=== PATIENT | female | born 1995 | race Caucasian/White ===

== ENCOUNTER 2019-03-08 12:18 | Emergency (ER) | payer MEDICAID ==
[~2019-03-08] VITALS: Ht 165.1 cm; Wt 54.4 kg
[2019-03-08 13:02] VITALS: BP_SYST 128
[2019-03-08] MEDS ORDERED: IBUPROFEN 600 MG TABLET PO ONE (13:45)
[2019-03-08 14:05] VITALS: BP_SYST 128
== END 2019-03-08 14:05 | disposition home or self-care (01) ==
LOC: SED 12:18
DX: S93.402A Sprain of unspecified ligament of left ankle, initial encounter (principal); R03.0 Elevated blood-pressure reading, without diagnosis of hypertension; X50.9XXA Other and unspecified overexertion or strenuous movements or postures, initial encounter; Y93.89 Activity, other specified; Y92.89 Other specified places as the place of occurrence of the external cause; Y99.8 Other external cause status
CPT/HCPCS: 81025; 99283

== ENCOUNTER 2021-03-31 07:05 | Inpatient (IN) | payer MEDICAID, SELFPAY ==
[~2021-03-31] VITALS: Ht 165.1 cm; Wt 69.4 kg
[2021-03-31] MEDS ORDERED: NALBUPHINE HCL 10 MG/ML AMP IVP PRN (08:00)
[2021-03-31] MEDS ORDERED: TERBUTALINE SULFATE 1 MG/ML VIAL SUBCUT ONE (08:00)
[2021-03-31] MEDS ORDERED: OXYTOCIN/0.9 % SODIUM CHLORIDE 1,000 ML IV SCH (08:00)
[2021-03-31] MEDS ORDERED: LR 1,000 ML IV SCH (08:00)
[2021-03-31 08:29] LABS: BASOPHILS % (AUTO) 0.5 % (0.0-2.0); EOSINOPHILS # (AUTO) 0.1 K/uL (0.0-0.4); EOSINOPHILS % (AUTO) 0.6 % (0.0-4.0); HEMATOCRIT 36.1 % (36-48); HEMOGLOBIN 12.3 g/dL (12.0-16.0); LYMPHOCYTES # (AUTO) 1.9 K/uL (1.0-5.5); LYMPHOCYTES % (AUTO) 22.4 % (20.5-51.5); MEAN CORPUSCULAR HEMOGLOBIN 31 pg (27-31); MEAN CORPUSCULAR HGB CONC 34 % (32-36); MEAN CORPUSCULAR VOLUME 90 fL (79.0-98.0); MONOCYTES # (AUTO) 0.5 K/uL (0.0-1.0); MONOCYTES % (AUTO) 6.1 % (1.7-9.3); NEUTROPHILS # (AUTO) 5.8 K/uL (1.8-7.7); NEUTROPHILS % (AUTO) 70.4 % (40.0-70.0); PLATELET COUNT (AUTO) 201 K/uL (130-430); RED BLOOD CELL COUNT(AUTO) 4.01 MIL/uL (4.2-6.2); RED CELL DISTRIBUTION WIDTH 13.5 % (9.0-15.0); WHITE BLOOD COUNT (AUTO) 8.3 K/uL (4.8-10.8)
[2021-03-31] MEDS ORDERED: fentaNYL CITRATE/PF 100 MCG/2 ML AMP ONE (08:52)
[2021-03-31] MEDS ORDERED: ROPIVACAINE HCL/PF 0.2% 200 ML ONE (08:52)
[2021-03-31 10:23] VITALS: BP_SYST 118
[2021-03-31] MEDS ORDERED: METHYLERGONOVINE MALEATE 0.2 MG TABLET PO PRN (11:00)
[2021-03-31] MEDS ORDERED: ANUSOL 1 EA SUPP.RECT (PREPARATION H) RC PRN (11:00)
[2021-03-31] MEDS ORDERED: OXYCODONE/ACETAMINOPHEN 5-325 TABLET PO PRN (11:00)
[2021-03-31] MEDS ORDERED: HYDROCORTISONE 0.5% CREAM 28.4 GM CREAM.GM. TP PRN (11:00)
[2021-03-31] MEDS ORDERED: WITCH HAZEL LEAF 1 MED.PAD MED.PAD TP PRN (11:00)
[2021-03-31] MEDS ORDERED: OXYTOCIN/0.9 % SODIUM CHLORIDE 1,000 ML IV ONE (11:00)
[2021-03-31] MEDS ORDERED: DERMOPLAST SPRAY TP PRN (11:00)
[2021-03-31] MEDS ORDERED: LANOLIN 7 GM OINT. TP PRN (11:00)
[2021-03-31] MEDS: IBUPROFEN 800 MG TABLET PO PRN (11:59)
[2021-03-31] MEDS: OXYCODONE/ACETAMINOPHEN 5-325 TABLET PO PRN ×2 (17:26→21:15)
[2021-03-31] MEDS ORDERED: TEMAZEPAM 15 MG CAPSULE PO PRN (21:00)
[2021-03-31] MEDS ORDERED: SENNOSIDES/DOCUSATE SODIUM 1 TAB TABLET(SENOKOT-S) PO SCH (21:00)
[2021-04-01] MEDS: IBUPROFEN 800 MG TABLET PO PRN ×3 (00:02→12:59)
[2021-04-01] MEDS ORDERED: DIPH-TET-PERTUS Vaccine 0.5 ML VIAL (ADACEL) I.M. ONE (07:45)
[2021-04-01 08:20] LABS: HEMOGLOBIN 11.4 g/dL (12.0-16.0)
[2021-04-01] MEDS ORDERED: DOCUSATE SODIUM 100 MG CAPSULE PO SCH (09:00)
[2021-04-02 20:06] LABS: FTA-Ab (T PALLIDUM) Non Reactive (Non Reactive)
== END 2021-04-01 13:50 | disposition home or self-care (01) | DRG 560 ==
LOC: SPU 07:05 → OBSVTOIN 07:05
PROVIDERS: ADMIT Obstetrics & Gynecology; ATTEND Obstetrics & Gynecology
PROC: 10E0XZZ Delivery of Products of Conception, External Approach (ICD-10-PCS; principal; 2021-03-31)
PROC: 0HQ9XZZ Repair Perineum Skin, External Approach (ICD-10-PCS; 2021-03-31)
PROC: 3E0R3BZ Introduction of Anesthetic Agent into Spinal Canal, Percutaneous Approach (ICD-10-PCS; 2021-03-31)
PROC: 00HU33Z Insertion of Infusion Device into Spinal Canal, Percutaneous Approach (ICD-10-PCS; 2021-03-31)
DX: O70.0 First degree perineal laceration during delivery (principal); Z37.0 Single live birth; R71.0 Precipitous drop in hematocrit; Z20.822 Contact with and (suspected) exposure to COVID-19; Z3A.39 39 weeks gestation of pregnancy
CPT/HCPCS: 36415; 81002; 85018; 85025; 86592; 86780; 86886; 86900; 86901; 90715; 94760; J2590; J3010

== ENCOUNTER 2022-08-23 13:35 | Emergency (ER) | payer MEDICAID ==
[~2022-08-23] VITALS: Ht 165.1 cm; Wt 72.6 kg
[2022-08-23 14:29] VITALS: BP_SYST 119
[2022-08-23 15:43] LABS: BILIRUBIN,URINE NEGATIVE (NEGATIVE); BLOOD, URINE NEGATIVE (NEGATIVE); CLARITY/URINE CLEAR (CLEAR); COLOR,URINE YELLOW (YELLOW); GLUCOSE,URINE NEGATIVE (NEGATIVE); KETONES,URINE TRACE (NEGATIVE); LEUKOCYTE ESTERASE ,URINE NEGATIVE (NEGATIVE); NITRITE, URINE NEGATIVE (NEGATIVE); PROTEIN URINE NEGATIVE (NEGATIVE)
[2022-08-23 16:00] LABS: BASOPHILS % (AUTO) 0.5 % (0.0-2.0); EOSINOPHILS # (AUTO) 0.1 K/uL (0.0-0.4); HEMATOCRIT 41.3 % (36-48); HEMOGLOBIN 13.6 g/dL (12.0-16.0); LYMPHOCYTES # (AUTO) 1.5 K/uL (1.0-5.5); LYMPHOCYTES % (AUTO) 27.6 % (20.5-51.5); MEAN CORPUSCULAR HEMOGLOBIN 28 pg (27-31); MEAN CORPUSCULAR HGB CONC 33 % (32-36); MEAN CORPUSCULAR VOLUME 85 fL (79.0-98.0); MONOCYTES # (AUTO) 0.5 K/uL (0.0-1.0); MONOCYTES % (AUTO) 9.4 % (1.7-9.3); NEUTROPHILS # (AUTO) 3.4 K/uL (1.8-7.7); NEUTROPHILS % (AUTO) 61.5 % (40.0-70.0); PLATELET COUNT (AUTO) 222 K/uL (130-430); RED BLOOD CELL COUNT(AUTO) 4.83 MIL/uL (4.2-6.2); RED CELL DISTRIBUTION WIDTH 13.8 % (9.0-15.0); WHITE BLOOD COUNT (AUTO) 5.6 K/uL (4.8-10.8)
[2022-08-23 16:11] LABS: CALCIUM 8.5 mg/dL (8.4-11.0); CREATININE 0.56 mg/dL (0.55-1.30)
[2022-08-23 16:16] LABS: ALBUMIN 3.9 g/dL (3.4-4.8); TOTAL BILIRUBIN 0.4 mg/dL (0.0-1.0)
[2022-08-23] MEDS ORDERED: OMEP20CA15 PO (17:12)
[2022-08-23] MEDS ORDERED: ONDA-8 TL (17:12)
== END 2022-08-23 17:29 | disposition home or self-care (01) ==
LOC: SED 13:35
DX: R10.13 Epigastric pain (principal); R11.10 Vomiting, unspecified; Z79.899 Other long term (current) drug therapy
CPT/HCPCS: 36415; 76705; 80053; 81003; 82150; 83605; 83690; 84703; 85025; 99284

== ENCOUNTER 2023-07-13 08:00 | Emergency (ER) | payer MEDICAID ==
[~2023-07-13] VITALS: Ht 165.1 cm; Wt 70.3 kg
[~2023-07-13 08:00] MED LIST: IBUP-1971 PO; OMEP20CA15 PO; ONDA-8 TL
[2023-07-13 08:07] VITALS: BP_SYST 120; PULSE 104; RESP 18; TEMP 98.4; O2SAT 99
[2023-07-13] MEDS ORDERED: ONDANSETRON 4 MG ODT TAB PO ONE (08:30)
[2023-07-13] MEDS ORDERED: KETOROLAC TROMETHAMINE 30 MG VIAL IM ONE (08:30)
[2023-07-13] MEDS ORDERED: IBUP-1969 PO (08:47)
[2023-07-13] MEDS ORDERED: CYCL10TA24 PO (08:47)
[2023-07-13] MEDS ORDERED: ONDA-8 TL (08:47)
[2023-07-13] MEDS ORDERED: ACET325T53 PO (08:47)
[2023-07-13 09:03] LABS: BILIRUBIN,URINE 1+ (NEGATIVE); BLOOD, URINE 1+ (NEGATIVE); CLARITY/URINE CLEAR (CLEAR); COLOR,URINE YELLOW (YELLOW); GLUCOSE,URINE NEGATIVE (NEGATIVE); KETONES,URINE 3+ (NEGATIVE); LEUKOCYTE ESTERASE ,URINE NEGATIVE (NEGATIVE); NITRITE, URINE NEGATIVE (NEGATIVE); PROTEIN URINE TRACE (NEGATIVE); UROBILINOGEN,URINE 0.2 (0.2-1.0)
[2023-07-13 09:11] LABS: BACTERIA,URINE RARE /HPF (None Seen)
[2023-07-13 09:12] LABS: MUCUS,URINE 1+ /LPF (None Seen)
[2023-07-13 09:52] VITALS: BP_SYST 116; PULSE 75; RESP 14; TEMP 98.3; O2SAT 99
== END 2023-07-13 09:00 | disposition home or self-care (01) ==
LOC: SED 08:00
DX: B34.9 Viral infection, unspecified (principal); M79.18 Myalgia, other site; R11.0 Nausea; Z79.899 Other long term (current) drug therapy; Z20.822 Contact with and (suspected) exposure to COVID-19
CPT/HCPCS: 99283; 87426; 81001; 87086; 36415; 81025; 96372; 87804 ×2; Q0162; J1885; 81000; 81015

== ENCOUNTER 2023-08-19 13:55 | Emergency (ER) | payer MEDICAID ==
[~2023-08-19] VITALS: Ht 165.1 cm; Wt 70.3 kg
[2023-08-19 13:55] VITALS: BP_SYST 135; PULSE 111; RESP 19; TEMP 98.8; O2SAT 100
[~2023-08-19 13:55] MED LIST changes: +ACET325T53 PO; +CYCL10TA24 PO; +IBUP-1969 PO
[2023-08-19 15:56] LABS: BASOPHILS # (AUTO) 0.2 K/uL (0.0-0.2); BASOPHILS % (AUTO) 1.8 % (0.0-2.0); EOSINOPHILS # (AUTO) 0.1 K/uL (0.0-0.4); EOSINOPHILS % (AUTO) 0.7 % (0.0-4.0); HEMATOCRIT 38.6 % (36-48); HEMOGLOBIN 12.9 g/dL (12.0-16.0); LYMPHOCYTES # (AUTO) 2.3 K/uL (1.0-5.5); MEAN CORPUSCULAR HEMOGLOBIN 28 pg (27-31); MEAN CORPUSCULAR HGB CONC 34 % (32-36); MEAN CORPUSCULAR VOLUME 84 fL (79.0-98.0); MONOCYTES # (AUTO) 0.7 K/uL (0.0-1.0); MONOCYTES % (AUTO) 6.9 % (1.7-9.3); NEUTROPHILS # (AUTO) 6.4 K/uL (1.8-7.7); NEUTROPHILS % (AUTO) 66.6 % (40.0-70.0); PLATELET COUNT (AUTO) 279 K/uL (130-430); RED BLOOD CELL COUNT(AUTO) 4.62 MIL/uL (4.2-6.2); RED CELL DISTRIBUTION WIDTH 13.8 % (9.0-15.0); WHITE BLOOD COUNT (AUTO) 9.6 K/uL (4.8-10.8)
[2023-08-19 16:02] LABS: ANION GAP 10 (5-15); CARBON DIOXIDE 25 mmol/L (23-29); CHLORIDE 102 mmol/L (98-107); CREATININE 0.63 mg/dL (0.55-1.30); GFR AFRICAN AMERICAN 145 mL/min (>90); GFR NON AFRICAN-AMERICAN 120 mL/min (>90); GLUCOSE 104 mg/dL (74-106); POTASSIUM 3.4 mmol/L (3.5-5.1); SODIUM SERUM 137 mmol/L (136-145); UREA NITROGEN, BLOOD 10 mg/dL (8-21)
[2023-08-19] MEDS ORDERED: KETOROLAC TROMETHAMINE 30 MG VIAL IM ONE (17:45)
[2023-08-19 18:00] LABS: BILIRUBIN,URINE NEGATIVE (NEGATIVE); COLOR,URINE YELLOW (YELLOW); GLUCOSE,URINE NEGATIVE (NEGATIVE); KETONES,URINE NEGATIVE (NEGATIVE); LEUKOCYTE ESTERASE ,URINE 2+ (NEGATIVE); NITRITE, URINE NEGATIVE (NEGATIVE); PROTEIN URINE NEGATIVE (NEGATIVE); UROBILINOGEN,URINE 0.2 (0.2-1.0)
[2023-08-19 18:05] LABS: BLOOD, URINE TRACE (NEGATIVE); CLARITY/URINE SLIGHTLY HAZY (CLEAR)
[2023-08-19 18:27] LABS: BACTERIA,URINE MANY /HPF (None Seen)
[2023-08-19] MEDS ORDERED: NACL 0.9% 1,000 ML IV ONE (18:30)
[2023-08-19] MEDS ORDERED: iohexoL 350 mgI/mL, 100 ML INFUS..BTL IV ONE (18:40)
[2023-08-19 19:00] LABS: BARBITURATE, URINE NEGATIVE (NEG <=200); BENZODIAZEPINE, URINE NEGATIVE (NEG <=150); CANNABINOID, URINE NEGATIVE (NEG <=50); COCAINE, URINE NEGATIVE (NEG <=150); METHAMPHETAMINES SCREEN,URINE NEGATIVE (NEG <=500); OPIATE, URINE NEGATIVE (NEG <=100); PHENCYCLIDINE SCREEN,URINE NEGATIVE (NEG <=25); UR TRICYCLIC ANTIDEPRESSANTS NEGATIVE (NEG <=300); URINE AMPHETAMINE NEGATIVE (NEG <=500); URINE METHADONE NEGATIVE (NEG <=200); URINE OXYCODONE SCREEN NEGATIVE (NEG <=100)
[2023-08-19] MEDS ORDERED: IPRATROPIUM/ALBUTEROL SULFATE 3 ML AMPUL.NEB (DUONEB) INH ONE (19:00)
[2023-08-19] MEDS ORDERED: cephALEXin 500 MG CAPSULE PO ONE (19:00)
[2023-08-19] MEDS ORDERED: POTASSIUM CHLORIDE 20 MEQ TABLET.ER PO ONE (19:00)
[2023-08-19] MEDS ORDERED: ALBMDI INH (19:16)
[2023-08-19] MEDS ORDERED: NITR-85 PO (19:16)
[2023-08-19] MEDS ORDERED: IBUP-1969 PO (19:16)
[2023-08-19] MEDS ORDERED: PRED20TA PO (19:16)
[2023-08-19 21:36] VITALS: BP_SYST 114; PULSE 98; RESP 20; TEMP 98.8; O2SAT 95
== END 2023-08-19 20:21 | disposition home or self-care (01) ==
LOC: SED 13:55
DX: N39.0 Urinary tract infection, site not specified (principal); R09.1 Pleurisy; E87.6 Hypokalemia; Z79.899 Other long term (current) drug therapy
CPT/HCPCS: 99285; 96360; 71275; 71046; 80307; 80048; 83880; 85025; 85379; 87086; 84484; 36415; 93005; 94640; 81025; 96372; 81000; 81001; 81015; 76376; Q9967; J1885; J7030